=== PATIENT | male | born 1965 | race Caucasian/White ===

== ENCOUNTER → 2019-03-13 | Outpatient (CLI) | payer BC ==
--- NOTE | 2019-03-13 15:52 | REP ---
Eight views bilateral hands: 03/13/2019. Indication: Bilateral hand pain. Comparison: None. Findings: There is no acute fracture, subluxation or dislocation. No lytic or blastic lesions are present within the visualized bones. Alignment is anatomic. Minimal osteoarthritic changes are noted most pronounced within the distal PIPs. Impression: No acute osseous injuries of the left or right hands. Electronically Signed by Brendan Ibrahim DO 03/13/2019 03:43 P
== END ==
LOC: M LRY 15:09
PROVIDERS: ATTEND Family Medicine
DX: M79.641 Pain in right hand (principal); M79.642 Pain in left hand

== ENCOUNTER → 2019-03-13 | Outpatient (REF) | payer BC ==
[2019-03-13 20:33] LABS: BASO # 0.1 10^3/uL (0.0-0.2); BASO % 0.7 % (0.0-1.0); EOS # 0.2 10^3/uL (0.0-0.5); EOS % 2.4 % (0.0-3.0); HEMATOCRIT 46.5 % (42.0-52.0); HEMOGLOBIN 15.4 g/dl (13.5-17.5); LYMPH # 2.8 10^3/uL (1.5-5.0); LYMPH % 34.7 % (24.0-44.0); MEAN CORPUSCULAR HEMOGLOBIN 30.9 pg (27.0-33.0); MEAN CORPUSCULAR HGB CONC 33.1 g/dl (32.0-36.5); MEAN CORPUSCULAR VOLUME 93.4 fl (80.0-96.0); MONO # 0.7 10^3/uL (0.0-0.8); MONO % 8.1 % (0.0-5.0); NEUTROPHILS # 4.3 10^3/uL (1.5-8.5); NEUTROPHILS % 53.9 % (36.0-66.0); PLATELET COUNT, AUTOMATED 191 10^3/uL (150-450); RED BLOOD COUNT 4.98 10^6/uL (4.30-6.10); WHITE BLOOD COUNT 8.1 10^3/uL (4.0-10.0)
[2019-03-13 20:36] LABS: ALBUMIN 3.7 GM/DL (3.2-5.2); ALT/SGPT 23 U/L (12-78); BILIRUBIN,TOTAL 0.6 MG/DL (0.2-1.0); BLOOD UREA NITROGEN 16 MG/DL (7-18); C REACTIVE PROTEIN QUANTITATIV < 0.30 MG/DL (0.00-0.30); CALCIUM LEVEL 8.5 MG/DL (8.5-10.1); CARBON DIOXIDE LEVEL 25 MEQ/L (21-32); CHLORIDE LEVEL 109 MEQ/L (98-107); CREATININE FOR GFR 0.98 MG/DL (0.70-1.30); GLOMERULAR FILTRATION RATE > 60.0 (>56); GLUCOSE, FASTING 70 MG/DL (70-100); POTASSIUM SERUM 4.5 MEQ/L (3.5-5.1); RHEUMATOID FACTOR QUANT < 10.0 IU/ML (<15.0); SODIUM LEVEL 139 MEQ/L (136-145); TOTAL PROTEIN 6.4 GM/DL (6.4-8.2)
[2019-03-13 20:42] LABS: THYROID STIMULATING HORMONE 2.31 uIU/ML (0.358-3.740); URIC ACID 3.2 MG/DL (3.5-7.2)
[2019-03-13 21:11] LABS: ERYTHROCYTE SEDIMENTATION RATE 2 mm/hr (0-20)
[2019-03-17 00:06] LABS: ANA (HEP2) Negative (.)
== END ==
LOC: M SFHCLERA 14:40
PROVIDERS: ATTEND Family Medicine
DX: M79.641 Pain in right hand (principal)

== ENCOUNTER → 2019-03-31 | Outpatient (CLI) | payer BC ==
--- NOTE | 2019-04-01 02:42 | REPPI ---
Clinical: Nontraumatic pain. Technique: Frontal view of the pelvis with neutral and frog lateral views of the right and left hip. Findings: No evidence for acute fracture dislocation or healed injury. Minimal increased sclerosis along the acetabular roof with associated mild joint space narrowing noted bilaterally. No further overt degenerative changes noted. Surrounding soft tissues are unremarkable. Impression: Mild symmetric age-related changes suggested. Electronically Signed by Simone Cazares MD 04/01/2019 02:34 A
--- NOTE | 2019-04-01 02:43 | REPPI ---
Clinical: Hypertension . Comparison: None . Technique: PA and lateral. Findings: The mediastinum and cardiac silhouette are normal. The lung pak are clear and without acute consolidation, effusion, or pneumothorax. The skeletal structures are intact and normal. Impression: 1. No acute cardiopulmonary process. Electronically Signed by Simone Cazares MD 04/01/2019 02:35 A
--- NOTE | 2019-04-01 02:45 | REPPI ---
Clinical: Nontraumatic bilateral rib pain Technique: 8 total views of the bilateral hemithoraces. Findings: Multiple views of the right and left hemithorax demonstrates no obvious acute rib fracture or pathology. Impression: Normal bilateral rib series Electronically Signed by Simone Cazares MD 04/01/2019 02:37 A
--- NOTE | 2019-04-01 02:46 | REPPI ---
Clinical: Nontraumatic left elbow pain . Technique: AP, lateral, bilateral oblique views of the left elbow. Findings: No acute fracture or dislocation is appreciated. Joint spaces and surrounding soft tissues appear normal. Lateral view demonstrates normal positioning to the anterior and posterior fat pads without evidence for effusion/hemarthrosis. No subcutaneous emphysema or foreign body identified. Impression: Normal left elbow radiographs. Electronically Signed by Simone Cazares MD 04/01/2019 02:38 A
== END ==
LOC: M PLAIMG 10:40
PROVIDERS: ATTEND Family Medicine
DX: I10 Essential (primary) hypertension (principal)

== ENCOUNTER → 2019-04-07 | Outpatient (REF) | payer BC | LOC: M SFHCLERA 14:05 | PROVIDERS: ATTEND Family Medicine | DX: R52 Pain, unspecified (principal) ==

== ENCOUNTER → 2019-04-10 | Outpatient (CLI) | payer BC ==
[2019-04-10 14:36] LABS: BASO # 0.1 10^3/uL (0.0-0.2); BASO % 0.6 % (0.0-1.0); EOS # 0.1 10^3/uL (0.0-0.5); EOS % 1.5 % (0.0-3.0); HEMATOCRIT 47.3 % (42.0-52.0); HEMOGLOBIN 16.4 g/dl (13.5-17.5); LYMPH # 2.2 10^3/uL (1.5-5.0); LYMPH % 27.1 % (24.0-44.0); MEAN CORPUSCULAR HEMOGLOBIN 32.4 pg (27.0-33.0); MEAN CORPUSCULAR HGB CONC 34.7 g/dl (32.0-36.5); MEAN CORPUSCULAR VOLUME 93.5 fl (80.0-96.0); MONO # 0.6 10^3/uL (0.0-0.8); MONO % 7.9 % (0.0-5.0); NEUTROPHILS % 62.7 % (36.0-66.0); PLATELET COUNT, AUTOMATED 204 10^3/uL (150-450); RED BLOOD COUNT 5.06 10^6/uL (4.30-6.10)
[2019-04-10 14:43] LABS: C REACTIVE PROTEIN QUANTITATIV < 0.30 MG/DL (0.00-0.30)
[2019-04-10 14:44] LABS: CPK CREATINE PHOSPHOKINASE 66 U/L (39-308)
[2019-04-10 14:52] LABS: TOTAL 25(OH) VITAMIN D 8.2 NG/ML (30.0-100.0)
[2019-04-10 15:33] LABS: HIV 1&2 SCREEN CENTAUR NEGATIVE (NEGATIVE)
[2019-04-10 19:45] LABS: ERYTHROCYTE SEDIMENTATION RATE 1 mm/hr (0-20)
[2019-04-13 14:09] LABS: ANTI DS-DNA AB Negative (Negative); Lyme Disease IgG/IgM Antibodie <0.91 ISR (0.00-0.90); Lyme Disease IgM Ab Quantitati <0.80 index (0.00-0.79)
== END ==
LOC: M PLALAB 09:07
PROVIDERS: ATTEND Family Medicine
DX: R52 Pain, unspecified (principal)

== ENCOUNTER 2019-11-02 09:59 | Emergency (ER) | payer OTHER, BC ==
[~2019-11-02] VITALS: Ht 175.3 cm; Wt 88.5 kg
[2019-11-02] MEDS ORDERED: IBUPROFEN (10:06)
--- NOTE | 2019-11-02 10:57 | REPVR ---
PROCEDURE INFORMATION: Exam: XR Right Hand Exam date and time: 11/02/2019 10:36 AM Age: 53 years old Clinical indication: Pain and injury or trauma; Injury history: Crushed 4th distal digit by cow yesterday; Work related; Initial encounter; Swelling (edema); Hand; Right; Additional info: Crushed by a cow TECHNIQUE: Imaging protocol: XR Right hand. Views: 3 or more views. COMPARISON: CR HAND COMPLETE 03/13/2019 3:29 PM FINDINGS: Bones/joints: There is an acute transverse fracture of the proximal shaft of the distal phalanx of the right 4th finger. The distal fracture fragment is angulated slightly in a lateral and volar fashion and is displaced 1.5 mm dorsally upon the proximal fracture fragment. Soft tissues: The remainder of the right hand is normal. IMPRESSION: 1. There is an acute transverse fracture of the proximal shaft of the distal phalanx of the right 4th finger. The distal fracture fragment is angulated slightly in a lateral and volar fashion and is displaced 1.5 mm dorsally upon the proximal fracture fragment. 2. The remainder of the right hand is normal. Electronically signed by: Kb Martinez On 11/02/2019 10:57:41 AM
[2019-11-02] MEDS ORDERED: BOOSTRIX/ADACEL VACCINE (DIPHTH/PERTUSS/ACELL/TETANUS) 0.5ML SYR IM ONE (11:15)
[2019-11-02] MEDS ORDERED: KEFL500C17 PO (12:21)
[2019-11-02 12:37] VITALS: BP 172/90
== END 2019-11-02 13:03 | disposition home or self-care (01) ==
LOC: M ED 09:59
DX: S62.634B Displaced fracture of distal phalanx of right ring finger, initial encounter for open fracture (principal); S61.304A Unspecified open wound of right ring finger with damage to nail, initial encounter; W55.22XA Struck by cow, initial encounter; Y92.79 Other farm location as the place of occurrence of the external cause; Y93.K9 Activity, other involving animal care; Y99.0 Civilian activity done for income or pay